=== PATIENT | male | born 1950 | race Caucasian/White ===

== ENCOUNTER → 2019-05-25 | Outpatient (CLI) | payer MEDICARE ==
[~2019-05-25] MED LIST: ACET-1600 PO
== END | disposition home or self-care (01) ==
LOC: STAR 13:36
PROVIDERS: ATTEND Orthopaedic Surgery
DX: Z01.818 Encounter for other preprocedural examination (principal); S82.842A Displaced bimalleolar fracture of left lower leg, initial encounter for closed fracture; X58.XXXA Exposure to other specified factors, initial encounter; Y93.89 Activity, other specified; Y92.89 Other specified places as the place of occurrence of the external cause; Y99.8 Other external cause status
CPT/HCPCS: 93005

== ENCOUNTER 2019-05-30 14:26 | Day surgery (SDC) | payer MEDICARE ==
[~2019-05-30] VITALS: Ht 170.2 cm; Wt 74.3 kg
[~2019-05-30 14:26] MED LIST changes: +CEFAZOLIN 1,000 MG ONE; +DEXAMETHASONE 4 MG/ML, 1ML ONE; +ONDANSETRON 2MG/ML, 2ML ONE; +PROPOFOL 10 MG/ML, 20ML ONE; +ROCURONIUM 10MG/ML,5ML ONE; +SUCCINYLCHOLINE 20 MG/ML, 10ML ONE
[2019-05-30] MEDS ORDERED: LACTATED RINGERS 1,000 ML IV SCH ×2 (14:59→21:00)
[2019-05-30] MEDS ORDERED: LIDOCAINE-MPF 1%, 2ML INFIL ONE (15:00)
[2019-05-30 15:02] VITALS: BP 156/92
[2019-05-30] MEDS ORDERED: MIDAZOLAM 1 MG/ML, 2ML ONE (16:05)
[2019-05-30] MEDS ORDERED: FENTANYL PF 100 MCG/2ML ONE ×2 (16:05→19:27)
[2019-05-30] MEDS ORDERED: METOCLOPRAMIDE 5 MG/ML, 2ML IV PRN (18:30)
[2019-05-30] MEDS ORDERED: HYDROmorphone 2 MG/ML, 1ML IV PRN (18:30)
[2019-05-30] MEDS ORDERED: KETOROLAC 30 MG/1 ML IV PRN (18:30)
[2019-05-30] MEDS ORDERED: ALBUTEROL SULFATE 2.5 MG/3 ML NPPB PRN (18:30)
[2019-05-30] MEDS ORDERED: ONDANSETRON 2MG/ML, 2ML IVPush PRN (18:30)
[2019-05-30] MEDS ORDERED: OXYcodone 5 MG/5 ML ORAL.SOL UDC PO PRN (18:30)
[2019-05-30] MEDS ORDERED: LABETALOL 5MG/ML, 20ML IV PRN (18:30)
[2019-05-30] MEDS ORDERED: hydrALAzine 20 MG/ML, 1ML IV PRN (18:30)
[2019-05-30] MEDS ORDERED: PROMETHAZINE 25 MG/ML, 1ML IV PRN (18:30)
[2019-05-30] MEDS ORDERED: MEPERIDINE/PF 25MG/0.5ML IVPush PRN ×2 (18:30→19:00)
[2019-05-30] MEDS ORDERED: OXYcodone 5 MG/5 ML ORAL.SOL UDC ONE (19:27)
[2019-05-30] MEDS: FENTANYL PF 100 MCG/2ML IV PRN ×3 (19:30→19:45)
[2019-05-30] MEDS ORDERED: ONDANSETRON 2MG/ML, 2ML IV PRN (21:00)
[2019-05-30] MEDS ORDERED: OXYcodone/APAP 5/325MG TABLET PO PRN (21:00)
[2019-05-30] MEDS ORDERED: morphine SULFATE 10 MG/ML, 1ML IV PRN (21:00)
[2019-05-30] MEDS ORDERED: KETOROLAC 30 MG/1 ML IV SCH (21:00)
== END 2019-05-30 21:50 | disposition home or self-care (01) ==
LOC: OUT 14:26 → 4NOR 20:32 → OUT 21:50
PROVIDERS: ATTEND Orthopaedic Surgery
DX: S82.842A Displaced bimalleolar fracture of left lower leg, initial encounter for closed fracture (principal); F17.210 Nicotine dependence, cigarettes, uncomplicated; F41.9 Anxiety disorder, unspecified; F32.9 Major depressive disorder, single episode, unspecified; Z72.89 Other problems related to lifestyle; X58.XXXA Exposure to other specified factors, initial encounter; Y93.89 Activity, other specified; Y92.89 Other specified places as the place of occurrence of the external cause; Y99.8 Other external cause status
CPT/HCPCS: 27814; 64445; 64447; 73600; 76000; C1713; J0330; J0690; J1100; J1885; J2250; J2405; J2704; J3010; J7120; G0378

== ENCOUNTER 2020-06-28 11:17 | Emergency (ER) | payer MEDICARE ==
[~2020-06-28] VITALS: Ht 170.2 cm; Wt 77.9 kg
[~2020-06-28 11:17] MED LIST changes: -CEFAZOLIN 1,000 MG ONE; -DEXAMETHASONE 4 MG/ML, 1ML ONE; -ONDANSETRON 2MG/ML, 2ML ONE; -PROPOFOL 10 MG/ML, 20ML ONE; -ROCURONIUM 10MG/ML,5ML ONE; -SUCCINYLCHOLINE 20 MG/ML, 10ML ONE
--- NOTE | 2020-06-28 11:50 | NUR ---
[employer] HEL[employer]: PT FROM LOBBY TO ROOM AT THIS TIME.
--- NOTE | 2020-06-28 12:05 | NUR ---
PT PRESENTS TO ED TODAY WITH SOB AND WORSENING COUGH AND CONGESTION X 2 WEEKS. PT DENIES ANY OTHER MEDICAL CONDITIONS AND STATES OTHERWISE A HEALTHY MALE FOR HIS AGE. PT ATTACHED TO CARDIAC AND VS MONITORS AND VERBALIZES UNDERSTANDING OF ER PROCESS. PT VSS AT THIS TIME. AWAITING ERP FOR PT HISTORY AND ASSESSMENT.
[2020-06-28 12:53] LABS: BASOPHILS # (AUTO) 0.07 x10^3/uL (0-0.1); BASOPHILS % (AUTO) 1 % (0-1); EOSINOPHILS # (AUTO) 0.26 x10^3/uL (0-0.4); EOSINOPHILS % (AUTO) 4 % (1-7); LYMPHOCYTES # (AUTO) 1.93 x10^3/uL (1-3.4); LYMPHOCYTES % (AUTO) 29 % (22-44); MD NO; MEAN CORPUSCULAR HEMOGLOBIN 31.8 pg (27.5-34.5); MEAN CORPUSCULAR HGB CONC 33.4 g/dL (33.2-36.2); MEAN PLATELET VOLUME 7.6 fL (7.4-10.4); MONOCYTES # (AUTO) 0.64 x10^3/uL (0.2-0.8); MONOCYTES % (AUTO) 10 % (2-9); NEUTROPHILS # (AUTO) 3.77 x10^3/uL (1.8-6.8); NEUTROPHILS % (AUTO) 57 % (42-75); PLATELET COUNT 204 x10^3/uL (130-400); RED CELL DISTRIBUTION WIDTH 13.5 % (9.4-14.8)
[2020-06-28] MEDS ORDERED: ALBUTEROL/IPRATROPIUM 2.5MG/0.5MG, 3 ML ONE (12:54)
--- NOTE | 2020-06-28 12:54 | NUR ---
DUONEB TREATMENT INITIATED BY THIS RN AT THIS TIME. PT DEMONSTRATES CORRECT USE OF NEBULIZER. ALL QUESTIONS ANSWERED.
--- NOTE | 2020-06-28 12:54 | NUR ---
XRAY AT AT THIS TIME.
[2020-06-28] MEDS ORDERED: ALBUTEROL/IPRATROPIUM 2.5MG/0.5MG, 3 ML NPPB ONE (13:00)
--- NOTE | 2020-06-28 13:02 | NUR ---
REPORT OF PT TO [facility]. ALL QUESTIONS ANSWERED.
[2020-06-28 13:04] LABS: ALANINE AMINOTRANSFERASE 29 U/L (12-78); ALBUMIN 3.9 g/dL (3.4-5.0); ANION GAP 5 mmol/L (5-15); CALCIUM 8.9 mg/dL (8.5-10.1); CHLORIDE 100 mmol/L (98-107); CREATININE 0.73 mg/dL (0.7-1.3)
[2020-06-28 13:07] LABS: ALKALINE PHOSPHATASE 71 U/L (45-117); BILIRUBIN,TOTAL 0.4 mg/dL (0.2-1.0); TOTAL PROTEIN 7.1 g/dL (6.4-8.2)
--- NOTE | 2020-06-28 13:46 | NUR ---
CARE FOR DC ONLY PROVIDED. PT SITTING UP ON GURNEY, NO ACUTE DISTRESS NOTED. NO IV TO DC. REVIEWED DC INSTRUCTIONS WITH PT, UNDERSTANDING VERBALIZED. PT LEFT AMB, GAIT STEADY.
[2020-06-28 13:47] VITALS: BP 124/80
== END 2020-06-28 13:49 | disposition home or self-care (01) ==
LOC: ED 13:35
DX: F17.210 Nicotine dependence, cigarettes, uncomplicated (principal); R05 Cough; R06.02 Shortness of breath
CPT/HCPCS: 36415; 71045; 80053; 85025; 93005; 94640; 99285; 99406